=== PATIENT | female | born 2000 | race African-American/Black ===

== ENCOUNTER 2024-10-10 14:22 | Observation (INO) | payer BC, MEDICAID ==
[~2024-10-10] VITALS: Ht 167.6 cm; Wt 89.8 kg
[2024-10-10 14:24] VITALS: BP 134/52; PULSE 98; RESP 18; TEMP 98; O2SAT 100
--- NOTE | 2024-10-10 14:44 | ED.PDOC ---
INSTRUCTOR OF EDUCATION HPI Comments A 23 year-old female, with a PMHX of Left Ovarian Cysts, presents to the ED with a chief complaint of pelvic pain with associated cramping for X2-3 weeks. Patient is currently X25 weeks with her third child. Patient reports . Patient states she feels spontaneous pelvic "pressure" when walking, squatting, or standing, with no associated relieving factors. Patient additionally reports being at high risk of with X3 months of bleeding recorded. Patient has no further complaints at this time and otherwise denies further associated symptoms of dysuria, hematuria, N/V, migraine, dizziness, fever, or chills. 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 Family History Family History: Reviewed,noncontributory to illness, No family hx of Cancer, No family hx of DM, No family hx of Heart yohana, No family hx ofKidney yohana, No family hx of Liver yohana, No family hx of Lung yohana, No family hx of Stroke, Family hx of HTN Social History Smoker: Non-Smoker Alcohol: Denies ETOH Use Drugs: Denies Drug Use Lives In: Home Constitutional: denies: chills, diaphoresis, fatigue, fever, malaise, sweats, weakness, others EENTM: denies: blurred vision, double vision, ear bleeding, ear discharge, ear drainage, ear pain, ear ringing, eye pain, eye redness, hearing loss, mouth pain, mouth swelling, nasal discharge, nose bleeding, nose congestion, nose pain, photophobia, tearing, throat pain, throat swelling, voice changes, others Respiratory: denies: cough, hemoptysis, orthopnea, SOB at rest, shortness of breath, SOB with excertion, stridor, wheezing, others Cardiovascular: denies: chest pain, dizzy spells, diaphoresis, Dyspnea on exertion, edema, irregular heart beat, left arm pain, lightheadedness, palpitations, PND, syncope, others Gastrointestinal: denies: abdomen distended, abdominal pain, blood streaked bowels, constipated, diarrhea, dysphagia, difficulty swallowing, hematemesis, melena, nausea, poor appetite, poor fluid intake, rectal bleeding, rectal pain, vomiting, others Genitourinary: reports: , others (pelvic pain with cramping); denies: abnormal vagina bleeding, burning, dyspareunia, dysuria, flank pain, frequency, hematuria, incontinence, pain, vagina discharge, urgency Neurological: denies: dizziness, fainting, headache, left sided numbness, left sided weakness, numbness, paresthesia, pre-existing deficit, right sided numbness, right sided weakness, seizure, speech problems, tingling, tremors, weakness, others Musculoskeletal: denies: back pain, gout, joint pain, joint swelling, muscle pain, muscle stiffness, neck pain, others Integumetry: denies: bruises, change in color, change in hair/nails, dryness, laceration, lesions, lumps, rash, wounds, others Allergic/Immunocompromised: denies: Difficulty Healing, Frequent Infections, Hives, Itching, others Hematologic/Lymphatic: denies: anemia, blood clots, easy bleeding, easy bruising, swollen glands, others Endocrine: denies: excessive hunger, excessive sweating, excessive thirst, excessive urination, flushing, intolerance to cold, intolerance to heat, unexplained weight gain, unexplained weight loss, others Psychiatric: denies: anxiety, bipolar disorder, depression, hopeless, panic disorder, schizophrenia, sleepless, suicidal, others All Other Systems: Reviewed and Negative Physical Exam General Appearance: Moderate Distress HEENT: Normal ENT Inspection, Pharynx Normal, TMs Normal Neck: Full Range of Motion, Non-Tender, Normal, Normal Inspection Respiratory: Chest Non-Tender, Lungs Clear, No Accessory Muscle Use, No Respiratory Distress, Normal Breath Sounds Cardiovascular: No Edema, No JVD, No Murmur, No Gallop, Normal Peripheral Pulses, Regular Rate/Rhythm Breast Exam: Deferred Gastrointestinal: No Organomegaly, Non Tender, No Pulsatile Mass, Normal Bowel Sounds, Other (Gravid uterus) Genitalia: Deferred Pelvic: Deferred Rectal: Deferred Extremities: No calf tenderness, Normal capillary refill, Normal inspection, Normal range of motion, Non-tender, No pedal edema Musculoskeletal : Apperance: Normal Neurologic: Alert, engineer first assistant II-XII nml as Tested, No Motor Deficits, Normal Affect, Normal Mood, No Sensory Deficits Cerebellar Function: Normal Reflexes: Normal Skin: Dry, Normal Color, Warm Lymphatic: No Adenopathy Was a procedure done? 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 MOTOR OPERATOR) Vaginal Bleeding: - Incomplete, - Threatened, Ectopic , UTI, Vaginitis, Other (Ovarian Cyst ) Vaginal Discharge: X-Ray, Labs, Meds, VS At this time the patient is being sent to labor and delivery because the patient is over 20 weeks The patient is cleared from the emergency department's Time of 1ST Reevaluation: 15:00 Reevaluation 1ST: Unchanged Consultation: conservator artifacts Patient Education/Counseling: Diagnosis, Treatment, Prognosis, Need For Follow Up Family Education/Counseling: No Family Present Departure 1 Departure Time of Disposition: 14:46 Impression: Primary Impression: Abdominal pain in Qualified Codes: O26.899 - Other specified related conditions, unspecified trimester; R10.9 - Unspecified abdominal pain Disposition: 01 HOME / SELF CARE / HOMELESS Condition: Fair Discharged With: Self Critical Care Note Critical Care Time?: No Stability Stability form required: No Heart Score Heart Score: Heart Score Response (Comments) Value History N/A 0 EKG N/A 0 Age N/A 0 Risk Factors N/A 0 Troponin N/A 0 Total 0 I personally scribed for YOSELIN GOMEZ MD ([email or web address]) on 10/10/24 at 14:44. Electronically submitted by Karen HellerNA[facility]). YOSELIN GOMEZ MD Oct 10, 2024 14:44
[2024-10-10] MEDS: ACETAMINOPHEN 500 MG TAB or CAP PO ONE (15:22)
[2024-10-10 15:44] LABS: Hematocrit 34.6 % (36.0-46.0); Hemoglobin 11.6 g/dL (12.2-16.2); Mean Corpuscular Hemoglobin 28.6 pg (28.0-32.0); Mean Corpuscular Volume 85.4 fL (80.0-100.0); Nucleated Red Blood Cells % 0.0 %
[2024-10-10 15:58] LABS: INR 0.9 (0.9-1.15); Partial Thromboplastin Time 29.6 SEC (24.5-34.5); Prothrombin Time 9.6 sec (9.3-11.8)
[2024-10-10 16:01] LABS: Alanine Aminotransferase 12 U/L (7-40); Albumin 3.7 g/dL (3.2-4.8); Anion Gap 7 (5-15); BUN/Creatinine Ratio 8.9 (10.0-20.0); Bilirubin, Total 0.4 mg/dL (0.2-1.0); Carbon Dioxide 24 mmol/L (20-31); Glucose 79 mg/dL (74-106); Potassium 3.8 mmol/L (3.5-5.1); Sodium 139 mmol/L (136-145); Total Protein 5.9 g/dL (5.7-8.2); Uric Acid 3.1 mg/dL (3.1-7.8)
[2024-10-10 16:02] LABS: Alkaline Phosphatase 40 U/L (46-116); Blood Urea Nitrogen 5 mg/dL (9-23); Calcium 8.6 mg/dL (8.7-10.4); Chloride 108 mmol/L (98-107)
[2024-10-10 16:08] LABS: Urine Amorphous Crystal FEW /hpf (None Seen); Urine Protein, UAD Negative (Negative)
[2024-10-10 16:18] LABS: Protein, Urine < 6.0 mg/dL (1-14)
--- NOTE | 2024-10-10 16:21 | DVH ---
OB ULTRASOUND, LIMITED CLINICAL INDICATION: Cramping TECHNIQUE: Multiple grayscale ultrasound and M-mode images were obtained of the pelvis for evaluation of intrauterine . COMPARISON: None FINDINGS: A single living fetus is seen in breech presentation. Biparietal diameter: 6.08 cm (24 weeks, 5 days) Head Circumference: 21.54 cm (23 weeks, 4 days) Abdomen Circumference: 19.55 cm (24 weeks, 2 days) Femur Length: 4.36 cm (24 weeks, 2 days) Estimated weight: 674 grams (+/- 101 grams). 1 lb 8 oz Placenta: Posterior. Amniotic fluid: Visibly normal. KENYETTA 13 cm and closed Cervix is 3 cm and closed heart rate: 132 beats/min. A complete anatomic survey was not performed on this exam. IMPRESSION: Single living intrauterine with an estimated gestational age of 24 weeks, 2 days, corresp onding to an estimated date of delivery of 01/28/2025.
--- NOTE | 2024-10-10 18:18 | DVHDS2 ---
Physician Discharge Progress N Final Diagnosis: uterine cramping and MENDOZA, resolved ruled out preeclampsia Operations or Procedures: Operations or Procedures S: 23yo IUP@25wks presents to OB triage from ED with c/o uterine cramping and headache. +FM, denies UCs/VB/LOF/vision changes/RUQ pain. PNC with Dr. Osman, complicated with vaginal bleeding for the first three months and is on bedrest. Taking PNV only. O: VSS +FHTs TOCO: no UCs Tylenol 1000mg PO given and headache resolved PO hydration Laboratory Tests Test 10/10/24 15:22 Range/Units White Blood Count 9.0 4.4-10.8 10^3/uL Red Blood Count 4.05 4.0-5.20 10^6/uL Hemoglobin 11.6 L 12.2-16.2 g/dL Hematocrit 34.6 L 36.0-46.0 % Mean Corpuscular Volume 85.4 80.0-100.0 fL Mean Corpuscular Hemoglobin 28.6 28.0-32.0 pg Mean Corpuscular Hemoglobin Concent 33.5 32.0-36.0 g/dL Red Cell Distribution Width 14.2 11.8-14.3 % Platelet Count 142 140-450 10^3/uL Mean Platelet Volume 10.8 6.9-10.8 fL Neutrophils (%) (Auto) 78.8 37.0-80.0 % Lymphocytes (%) (Auto) 14.1 10.0-50.0 % Monocytes (%) (Auto) 5.9 0.0-12.0 % Eosinophils (%) (Auto) 1.0 0.0-7.0 % Basophils (%) (Auto) 0.2 0.0-2.0 % Neutrophils # (Auto) 7.1 1.6-8.6 10 ^3/uL Lymphocytes # (Auto) 1.3 0.4-5.4 10 ^3/uL Monocytes # (Auto) 0.5 0-1.3 10 ^3/uL Eosinophils # (Auto) 0.1 0-0.8 10 ^3/uL Basophils # (Auto) 0 0-0.2 10 ^3/uL Nucleated Red Blood Cells 0.0 % Prothrombin Time 9.6 9.3-11.8 sec Prothrombin Time INR 0.90 0.9-1.15 Activated Partial Thromboplast Time 29.6 24.5-34.5 SEC Urine Color Light-yellow Yellow Urine Clarity Turbid H Clear Urine pH 7.0 5.0-9.0 Urine Specific [place] 1.009 1.001-1.035 Urine Protein Negative Negative Urine Ketones Negative Negative Urine Blood Negative Negative /uL Urine Nitrite Negative Negative Urine Bilirubin Negative Negative Urine Urobilinogen Normal Negative mg/dL Urine Leukocyte Esterase 2+ Negative /uL Urine RBC 1 0 - 4 /hpf Urine Microscopic WBC 6 H 0-5 /HPF Urine Squamous Epithelial Cells Few <5 /hpf Urine Amorphous Crystals Few None Seen /hpf Urine Bacteria None seen None Seen /hpf Urine Creatinine 63.49 30.0-125.0 mg/dL -U-r-i-n-e- -Y-c-u-t-e-i-n-/-X-v-l-y-a-f-n-i-n-e- -R-a-t-i-o- -0-.-0-9- Urine Glucose Normal Normal mg/dL Urine Total Protein < 6.0 1-14 mg/dL Sodium Level 139 136-145 mmol/L Potassium Level 3.8 3.5-5.1 mmol/L Chloride Level 108 H 98-107 mmol/L Carbon Dioxide Level 24 20-31 mmol/L Anion Gap 7 5-15 Blood Urea Nitrogen 5 L 9-23 mg/dL Creatinine 0.56 0.550-1.02 mg/dL Glomerular Filtration Rate Calc 130 >90 mL/min BUN/Creatinine Ratio 8.9 L 10.0-20.0 Serum Glucose 79 74-106 mg/dL Uric Acid 3.1 3.1-7.8 mg/dL Calcium Level 8.6 L 8.7-10.4 mg/dL Total Bilirubin 0.4 0.2-1.0 mg/dL Aspartate Amino Transferase (AST) 14 13-40 U/L Alanine Aminotransferase (ALT) 12 7-40 U/L Alkaline Phosphatase 40 L 46-116 U/L Total Protein 5.9 5.7-8.2 g/dL Albumin 3.7 3.2-4.8 g/dL Vital Signs Date Time Temp Pulse Resp B/P (MAP) Pulse Ox O2 Delivery O2 Flow Rate FiO2 10/10/24 14:24 98.0 98 18 134/52 100 98.0 A: 23yo IUP@25wks uterine cramping and MENDOZA, resolved ruled out preeclampsia P: D/C home PTL precautions reviewed f/u with primary OB Dr. Chacon consulted, agrees with POC. Other Interventions Other Interventions [address] [address] Ph: [phone] DIAGNOSTIC IMAGING Diagnostic Imaging Report : [id number] Signed PATIENT: XIMENA GARVIN ACCT: [id number] UNIT: [id number] : 2000 LOC: [facility] ROOM / BED: TRIAGE2 / A AGE / SEX: 23 / F ADM STATUS: ADM IN SERVICE 1505 ORDERING PHYSICIAN: CYNDI NORIEGA CNM PROCEDURE(s): OBUS - OB ULTRASOUND COMP GTR 14 WKS REASON: Cramping ORDER NUMBER(s): [id number], ACCESSION NUMBER(s): [id number] OB ULTRASOUND, LIMITED CLINICAL INDICATION: Cramping TECHNIQUE: Multiple grayscale ultrasound and M-mode images were obtained of the pelvis for evaluation of intrauterine . COMPARISON: None FINDINGS: A single living fetus is seen in breech presentation. Biparietal diameter: 6.08 cm (24 weeks, 5 days) Head Circumference: 21.54 cm (23 weeks, 4 days) Abdomen Circumference: 19.55 cm (24 weeks, 2 days) Femur Length: 4.36 cm (24 weeks, 2 days) Estimated weight: 674 grams (+/- 101 grams). 1 lb 8 oz Placenta: Posterior. Amniotic fluid: Visibly normal. KENYETTA 13 cm and closed Cervix is 3 cm and closed heart rate: 132 beats/min. A complete anatomic survey was not performed on this exam. IMPRESSION: Single living intrauterine with an estimated gestational age of 24 weeks, 2 days, corresponding to an estimated date of delivery of 01/28/2025. ATED BY: BRENDA NAVARRETE MD DICTATED DATE/TIME: 10/10/241618 SIGNED BY: BRENDA NAVARRETE MD SIGNED DATE/TIME: 10/10/241618 CC: Condition on Discharge: Stable Disposition: Home Discharge Instructions: Diet: Regular Activity: See Comment Activity comment: pelvic rest Medications: see med list Follow Up Care: Specialist: f/u with primary OB Discharge Statement: "Patient was advised to return to the ER or call 911 if any headaches, dizziness, shortness of breath, chest pain, abdominal pain, bleeding, fevers, or worsening of medical condition. Patient was counseled about treatment plan, medications, possible side effects, patientverbalized understanding. All questions were answered to the best of my ability. This discharge took greater then 30 minutes in planning, reviewing documentation, counseling the patient, and discussing with other team members." Visit Coding OBGYN Date of Service: Oct 10, 2024 Billing Provider: CYNDI NORIEGA CNM NEWSPAPER DELIVERY COUNSELOR Common Visit Codes: 24220-MQCVFYC OBS CARE (HIGH) NEWSPAPER DELIVERY COUNSELOR Procedure Codes: 81237-72- NON-STRESS TEST CYNDI NORIEGA CNM Oct 10, 2024 18:18
== END 2024-10-10 16:44 | disposition home or self-care (01) ==
LOC: ER 14:22 → UNDOADMOB 14:40 → LDRP 14:40 → UNDODISOB 16:44
PROVIDERS: ADMIT Obstetrics & Gynecology; ATTEND Obstetrics & Gynecology
DX: O26.893 Other specified pregnancy related conditions, third trimester (principal); N94.89 Other specified conditions associated with female genital organs and menstrual cycle; R51.9 Headache, unspecified; Z98.890 Other specified postprocedural states; Z79.899 Other long term (current) drug therapy; Z3A.25 25 weeks gestation of pregnancy
CPT/HCPCS: 36415; 59025; 76805; 80053; 81001; 81002; 82570; 84156; 84550; 85025; 85610; 85730; 94760